=== PATIENT | female | born 2000 | race Two or more races ===

== ENCOUNTER 2023-08-18 08:23 | Emergency (ER) | payer OTHER ==
[~2023-08-18] VITALS: Ht 149.9 cm; Wt 95.3 kg
[2023-08-18 09:41] LABS: HEMATOCRIT 30.1 % (36.0-45.00); HEMOGLOBIN 9.7 g/dL (12.0-15.00); MEAN CELL VOLUME 73.2 fL (80.00-100.00); MEAN CORPUSCULAR HEMOGLOBIN 23.5 pg (27.00-32.0); MEAN CORPUSCULAR HGB CONC 32.1 g/dl (32.0-36.0); PLATELET COUNT 415 K/uL (150-450); RED BLOOD COUNT 4.12 M/uL (4.00-6.00); RED CELL DISTRIBUTION WIDTH 16.8 % (11.5-14.5)
== END 2023-08-18 12:32 | disposition home or self-care (01) ==
LOC: ER 08:23
PROVIDERS: Emergency Medicine
DX: N93.9 Abnormal uterine and vaginal bleeding, unspecified (principal)

== ENCOUNTER 2024-02-14 09:46 | Emergency (ER) | payer OTHER ==
[~2024-02-14] VITALS: Ht 149.9 cm; Wt 99.8 kg
[2024-02-14] MEDS ORDERED: KETOROLAC TROMETHAMINE 30 MG VIAL IM ONE (10:45)
[2024-02-14 11:20] LABS: HEMATOCRIT 27.8 % (36.0-45.00); MEAN CELL VOLUME 69.9 fL (80.00-100.00); MEAN CORPUSCULAR HEMOGLOBIN 21.9 pg (27.00-32.0); MEAN CORPUSCULAR HGB CONC 31.5 g/dl (32.0-36.0); PLATELET COUNT 478 K/uL (150-450); RED BLOOD COUNT 3.97 M/uL (4.00-6.00); RED CELL DISTRIBUTION WIDTH 18.3 % (11.5-14.5)
[2024-02-14 11:21] LABS: HEMOGLOBIN 8.7 g/dL (12.0-15.00)
[2024-02-14 11:33] LABS: INR 1.04; PARTIAL THROMBOPLASTIN TIME 29.1 SECONDS (22.0-34.0); PROTHROMBIN TIME 10.9 SECONDS (9.0-11.5)
[2024-02-14 11:39] LABS: ANION GAP 9 (10.0-20.0); BLOOD UREA NITROGEN 10 mg/dL (7-18); BUN CREA RATIO 16 (7.0-25.0); CALCIUM 8.6 mg/dL (8.5-10.1); CARBON DIOXIDE 28 mEq/L (21-32); CHLORIDE 109 mmol/L (98-107); CREATININE SERUM 0.61 mg/dL (0.55-1.02); GFR 121.54; GLUCOSE FASTING 87 mg/dL (65-100); OSMOLALITY SERUM 280 MOSM/KG (275-295); POTASSIUM 4.53 mEq/L (3.5-5.1); SODIUM 141 mmol/L (136-145)
[2024-02-14 12:18] LABS: HCG QUANTITATIVE < 1 mUI/mL (1-3)
[2024-02-14 12:19] LABS: PH,URINE 5.5 (5.0-8.0); URINE APPEARANCE Clear; URINE BILIRRUBIN Negative (NEGATIVE); URINE BLOOD Large; URINE COLOR Yellow; URINE GLUCOSE Negative (NEGATIVE); URINE LEUKOCYTE Negative; URINE NITRATE Negative; URINE PROTEIN Negative (NEGATIVE); URINE UROBILINOGEN 0.2 E.U./dl
[2024-02-14 12:20] LABS: URINE BACTERIA 420.8 uL (0.0-1933); URINE EPITHELIAL CELLS 21.9 uL (0.0-38.8); URINE RBC 22.5 uL (0.0-20.8); URINE WBC 7.7 uL (0.0-23.2)
== END 2024-02-14 13:54 | disposition home or self-care (01) ==
LOC: ER 09:46
PROVIDERS: General Practice
DX: N94.6 Dysmenorrhea, unspecified (principal)
CPT/HCPCS: 36415; 76830; 96372; 99284; J1885

== ENCOUNTER 2024-08-03 21:47 | Emergency (ER) | payer OTHER ==
[~2024-08-03] VITALS: Ht 149.9 cm; Wt 99.8 kg
[2024-08-03 22:58] LABS: HEMATOCRIT 31.3 % (36.0-45.00); MEAN CORPUSCULAR HGB CONC 31.9 g/dl (32.0-36.0); PH,URINE 5.5 (5.0-8.0); PLATELET COUNT 461 K/uL (150-450); RED BLOOD COUNT 4.52 M/uL (4.00-6.00); URINE APPEARANCE Clear; URINE BILIRRUBIN Negative (NEGATIVE); URINE BLOOD Large; URINE COLOR Yellow; URINE GLUCOSE Negative (NEGATIVE); URINE KETONE Negative (NEGATIVE); URINE LEUKOCYTE Trace; URINE NITRATE Negative; URINE PROTEIN Negative (NEGATIVE)
[2024-08-03 23:01] LABS: URINE BACTERIA 100.7 uL (0.0-1933); URINE EPITHELIAL CELLS 4.1 uL (0.0-38.8); URINE RBC 5125.8 uL (0.0-20.8); URINE WBC 25.6 uL (0.0-23.2)
[2024-08-03 23:03] LABS: MEAN CELL VOLUME 69.2 fL (80.00-100.00)
[2024-08-03 23:18] LABS: CALCIUM 9.1 mg/dL (8.5-10.1); CREATININE SERUM 0.74 mg/dL (0.55-1.02); GFR 97.25; POTASSIUM 3.87 mEq/L (3.5-5.1)
[2024-08-04] MEDS ORDERED: KETO10TA2 PO (02:15)
[2024-08-04] MEDS ORDERED: INTEGRA F CAPS1 EACH PO (02:15)
== END 2024-08-04 02:19 ==
LOC: ER 21:47
PROVIDERS: Emergency Medicine
DX: N83.209 Unspecified ovarian cyst, unspecified side (principal); R10.2 Pelvic and perineal pain